=== PATIENT | male | born 1965 | race Caucasian/White ===

== ENCOUNTER → 2023-12-10 09:48 | Outpatient (REF) | payer OTHER, SELFPAY ==
[2023-12-10 10:45] LABS: % Basophils 0.8 % (0-2); % Eosinophils 2.8 % (0-6); % Immature Granulocytes 0.2 % (0-0.5); % Lymphocytes 28.1 % (20.5-51.1); % Monocytes 10.6 % (1.7-9.3); % Neutrophils 57.5 % (42.2-75.2); Absolute Eosinophils 0.1 10^3/uL (0-0.7); Absolute Lymphocytes 1.4 10^3/uL (1.2-3.4); Absolute Monocytes 0.5 10^3/uL (0.1-0.6); Absolute Neutrophils 2.9 10^3/uL (1.4-6.5); Hematocrit 41.8 % (39.0-52.0); Hemoglobin 14.2 g/dL (13.0-18.0); Mean Corpuscular Hgb 30.5 pg (27.0-31.0); Mean Corpuscular Volume 89.7 fL (80.0-94.0); Mean Platelet Volume 10.3 fL (7.4-10.4); Nucleated Red Blood Cells % 0 % (-); Platelet Count 216 10^3/uL (130-400); Red Blood Cell Count 4.66 10^6/uL (4.70-6.10); Red Cell Dist. Width 12.5 % (11.5-14.5); White Blood Cell Count 5.1 10^3/uL (4.8-10.8)
[2023-12-10 13:21] LABS: Blood Urea Nitrogen 26 mg/dl (9-20); Calcium 9.3 mg/dl (8.4-10.2); Carbon Dioxide 24 mmol/L (22-30); Chloride 110 mmol/L (98-107); Glucose 88 mg/dl (70-99); Potassium 4.6 mmol/L (3.5-5.1); Sodium 139 mmol/L (135-145); eGFR > 60.00
[2023-12-12 01:13] LABS: PSA, Ultrasensitive <0.01 ng/mL (0.00-4.00)
== END ==
LOC: REG 09:48
PROVIDERS: ATTENDING PHYSICIAN Orthopaedic Surgery; FAMILY PHYSICIAN Internal Medicine; REFERRING PHYSICIAN Specialist
DX: C61 Malignant neoplasm of prostate (principal); Z01.818 Encounter for other preprocedural examination
CPT/HCPCS: 36415; 80048; 84153; 85025; 93005

== ENCOUNTER 2025-07-09 16:36 | Inpatient (IN) | payer OTHER, SELFPAY ==
[2025-07-09] VITALS (13 sets, daily range): BP systolic 80–138; BP diastolic 61–90; BMI 38.4
--- NOTE | 2025-07-09 13:50 | ED.GENMED ---
History of Present Illness
General
Chief Complaint: Heart Rate Problem
Time Seen by Provider: 07/09/25 13:37
Nursing documentation reviewed up to this point in time: agreed with
History of Present Illness
History of Present Illness:
60-year-old male presents to the ER for evaluation of shortness of breath and feeling of palpitations this morning. Patient felt generally unwell and checked his pulse, noting that his heart rate was in the high 90s. He reports a feeling of
shortness of breath with exertion. He denies any chest pain. He denies any recent change in his medications and has been taking his lisinopril as prescribed. He denies any change in urine output. No nausea vomiting or diarrhea. He has been
traveling recently, including a drive to [facility] and a flight home. No prior personal history of venous thromboembolic disease. No prior personal history of ACS. He denies any recent significant cough or cold symptoms. No fevers. He felt
winded when he tried to go to a work meeting this morning prompting self-referral to the ER for evaluation.
Patient reports that he does have a history of intermittently elevated heart rate of unclear etiology. He states that he has seen a surgical scrub tech but not recently.
Past History
Past History
ED Past Medical History: Other (Obstructive sleep apnea)
ED Past Surgical History: Orthopedic
Social History
Tobacco: Non-smoker
Personal:
Living: with family
Employment: Employed
Family History
Family History: Other (Noncontributory)
Review of Systems
Review of Systems
Allergies reviewed?: Yes
Phy Exam
Physical Exam
Physical Exam:
Patient is awake, alert, appears in no acute distress, head is NCAT, PERRL, EOMI mucous membranes tacky, conjunctiva pink, heart elevated regular rate and rhythm without murmurs or ectopy, lungs are clear to auscultation without wheezes rales or
rhonchi, no JVD, abdomen is soft and nontender on palpation, extremities without edema, GCS is 15
Course
Orders/Labs/Results
Orders:
Orders
07/09/25 11:56
EKG [Electrocardiogram (*1)] Urgent
Reason for Study: Tachycardia
07/09/25 11:57
EKG- Treatment ONCE
07/09/25 13:48
CT Chest PE Study Urgent
Comment:
Reason For Exam: palpitations, hypoxia
O2 Therapy [RESP] Stat
Nasal Cannula Liter Flow: 2 LPM
Titrate/Wean O2 to maintain O2 sat greater than (%): 94
07/09/25 13:49
Cardiac Monitoring- Treatment ONCE
07/09/25 13:56
Complete Blood Count/With Diff Urgent
Comprehensive Metabolic Panel Urgent
PTT Urgent
Prothrombin Time Urgent
Troponin I Q3H
07/09/25 14:40
Electrocardiogram (*1) Urgent
Reason for Study: Palpitations
EKG- Treatment ONCE
07/09/25 15:19
Heparin 9,400 units IV NOW STA
Nursing to Place Non Medication Order As Directed
Physician Order: PTT 6 hours after initial start of Heparin infusion
07/09/25 15:30
Heparin 91655 Units/250 ml 25,000 units in 250 ml IV PER PROTOCOL
Weight to be used for heparin protocol in kilograms (kg):: 117.9
Protocol:: DVT/PE
PTT Goal Range to be used:: PTT 73 to 111 seconds
Order type:: Initial
INITIAL Infusion Dose (UNITS/KG/hr) & then follow protocol:: 18 units/kg/hr
Infusion Dose in UNITS/hr & then follow protocol (UNITS/hr):: 2,000
INFUSION RATE in mL/hr & then follow protocol (mL/hr):: 20
For DVT/PE algorithm, re-bolus for low PTT?: Yes
PTT less than or equal to 64 seconds:: Re-bolus 80 units/kg (max 10,000units). Increase by 500 units/hr
(+ 5mL/hr)
PTT 64.1 to 72.9 seconds:: Re-bolus 40 units/kg (max 5,000 units). Increase by 200 units/hr
(+ 2mL/hr)
PTT 73 to 111 seconds:: Target Range. No change in rate.
PTT 111.1 to 130.9 seconds:: Decrease rate by 200 units/hr (- 2 mL/hr)
PTT 131 to 199.9 seconds:: HOLD for 1 hr. Then decrease by 400 units/hr (- 4mL/hr)
PTT greater than or equal to 200 seconds:: HOLD for 2 hrs & Notify Provider. Then decrease by 500 units/hr
(- 5mL/hr)
Lab follow-up:: Each change, PTT q6h until 2 consecutive are therapeutic. Then
PTT daily.
07/09/25 16:[address] See Dose Instructions IV DIRECTED
07/09/25 17:00
Troponin I Q3H
07/09/25 21:21
PTT Urgent
Abnormal Lab Results
07/09/25
13:56
WBC 10.9 H 10^3/uL
(4.8-10.8)
Absolute Neuts (auto) 8.7 H 10^3/uL
(1.4-6.5)
Absolute Monos (auto) 0.8 H 10^3/uL
(0.1-0.6)
Neutrophils % 79.8 H %
(42.2-75.2)
Lymphocytes % 11.8 L %
(20.5-51.1)
Glucose 106 H mg/dl
(70-99)
Troponin I 0.279 H* ng/ml
07/09/25 13:56
07/09/25 13:56
CBC reassuring. Troponin elevated at 0.279
Vital Signs
Initial and Last Documented VS:
Initial Vital Signs
Temp Pulse Resp BP Pulse Ox
97.8 F 121 16 136/90 90
07/09/25 11:57 07/09/25 11:57 07/09/25 11:57 07/09/25 11:57 07/09/25 11:57
Last Documented Vital Signs
Temp Pulse Resp BP Pulse Ox
99.0 F 102 25 136/87 94
07/09/25 14:01 07/09/25 15:30 07/09/25 15:30 07/09/25 15:26 07/09/25 15:30
MDM/Problems Addressed
Differential Diagnosis Includes:
Differential diagnosis to consider but not limited to dehydration, electrolyte dyscrasia,arrythmia, ACS, pulmonary embolism, pneumonia along with other etiologies consider
Chronic conditions affecting care:
Hypertension, age greater than 50
*Radiology
Radiology exam reviewed: preliminary read by ED provider (I independently viewed and interpreted CT of the chest showing bilateral pulmonary emboli. Awaiting radiology interpretation of same)
*Pulse Oximetry
SaO2: 90
Oxygen Mode of Delivery: Room air
Patient hypoxic: yes
*EKG
Interpreted by ED Provider?: Yes (I independently viewed and interpreted twelve-lead EKG showing sinus tachycardia, rate 111, normal axis, otherwise normal intervals, nonspecific ST changes without ST elevation, this is an abnormal tracing with
increased rate compared to prior from 12/10/2023)
*Buckshot Swage Operator Interpretation
Rate: tachycardiac (I independently viewed and interpreted rhythm strip showing sinus tachycardia, no ectopy)
*Critical Care Note
Total Time (30-74mins, 75-104mins- exclusive of procedures): See note below
comment:
Critical care statement: A total of 30 minutes of critical care time was provided for this patient. This includes management of unstable vital signs, evaluation of the patient at bedside, reviewing the patient's pertinent medical records, discussion
with consultants, review of old EKGs and review of pertinent medical records. This time with separate from time utilized to perform the aforementioned documented procedures
Update Note
Update Note:
Given patient is hypoxic now requiring 2 L nasal cannula oxygen along with recent travel and elevated heart rate, will obtain CT to rule out pulmonary embolism
1448: After troponin value returned as elevated, EKG was repeated, revealing consistent tachycardia although improved with IV fluid administration, rate now 101. No ST elevation. Awaiting CT scan.
I independently viewed and interpreted CT scan showing bilateral pulmonary emboli. IV heparin bolus and drip are ordered. Patient and present at bedside are updated on need for admission for further anticoagulation and evaluation. They agree
with plan at current. I reviewed CT reading with radiologist who is in agreement with presence of bilateral pulmonary emboli. I reviewed full patient presentation with hospitalist who accepts patient for admission for further care.
ED Attending Note
-
Portions of this chart may have been created with voice recognition software.� Occasional wrong word or��sound alike� substitutions may have occurred due to the inherent limitations of voice recognition software.
Discharge Plan
Departure
Patient Disposition: Admit
Date of Disposition: 07/09/25
Time of Disposition: 15:51
Presentation/result/management discussed w/ accepting MD/DO: Hospitalist
Discharge Problem:
Pulmonary emboli, Elevated troponin I level, Hypoxia
Prescriptions:
No Action
acetaminophen [Tylenol] 325 mg Tablet
650 mg PO Q6HPRN PRN (Reason: headaches)
ascorbic acid (vitamin C) [Vitamin C] 500 mg Tablet
500 mg PO DAILY
cholecalciferol (vitamin D3) [Vitamin D3] 25 mcg (1,000 unit) Tablet
25 mcg PO DAILY
lisinopril-hydrochlorothiazide 10-12.5 mg Tablet
1 tab PO DAILY
Referrals:
Félix Banda DO [Family Provider, Internal Medicine]
Interventions
Interventions:
*Risk Screen - Suicide Last Done: 07/09/25 14:01
*General Assessment Last Done: 07/09/25 14:01
*Neglect/Abuse Screening Last Done: 07/09/25 14:01
*ED- Fall Risk Assessment Last Done: 07/09/25 14:01
*ED COVID-19 Vaccine History Last Done: 07/09/25 14:01
ED- Cardiac Assessment Last Done: 07/09/25 14:01
ED- Pulmonary Assessment Last Done: 07/09/25 14:01
Discharge Date and Time
Print Language: GERMAN
[2025-07-09 14:09] LABS: Hematocrit 41.6 % (39.0-52.0); Hemoglobin 14.2 g/dL (13.0-18.0); Mean Corp Hgb Conc. 34.1 g/dL (33.0-37.0); Mean Corpuscular Volume 86.8 fL (80.0-94.0); Nucleated Red Blood Cells % 0 % (-); Platelet Count 203 10^3/uL (130-400); Red Cell Dist. Width 12.3 % (11.5-14.5)
[2025-07-09 14:13] LABS: INR 1.06; PT 14.4 Sec (11.4-14.6)
[2025-07-09 14:14] LABS: APTT 32.2 Sec (23.4-35.0)
[2025-07-09 14:36] LABS: Troponin I 0.279 ng/ml
[2025-07-09 14:38] LABS: ALT (SGPT) 23 U/L (0-50); AST (SGOT) 20 U/L (17-59); Albumin 4.6 g/dl (3.5-5.0); Alkaline Phosphatase 74 U/L (38-126); Blood Urea Nitrogen 19 mg/dl (9-20); Calcium 9.5 mg/dl (8.4-10.2); Carbon Dioxide 28 mmol/L (22-30); Chloride 101 mmol/L (98-107); Estimated Creatinine Clearance 113 ml/min; Glucose 106 mg/dl (70-99); Potassium 4.6 mmol/L (3.5-5.1); Sodium 136 mmol/L (135-145); Total Protein 8.0 g/dl (6.3-8.2); eGFR > 60.00
[2025-07-09] MEDS: HEPARIN 9400 UNITS IV (15:47)
[2025-07-09] MEDS: HEPARIN 25000 UNITS/250 ML IV (15:50)
--- NOTE | 2025-07-09 15:57 | HPS.HSE ---
Family Physician
-
Family Physician: Félix Banda
Chief Complaint
-
Shortness of breath and chest pain
History of Present Illness
60-year-old male with history of hypertension and recent multiple travel flying and driving including 10-hour driving to [place] then, back 2 weeks ago he flew overnight to [place] and came back next day, presented to the hospital complaining of
shortness of breath, chest pain and palpitation and tachycardia earlier this morning while he was getting out from his office to drive to [place] walking few steps to the car the above-mentioned symptoms started and he looked at his Apple Watch
and he said his heart rate was 140, when he decided to not go to [place] he walked back to his office his symptoms started again therefore decided to come back to the hospital. Denied any fever or chill or any bleeding event or any chest pain or
shortness of breath prior to today but overall was not feeling well and having low energy last few days, no weakness or numbness in extremity, no dizziness or syncope.
Workup in ER concerning for bilateral pulmonary embolism and CT scan showed mild right-sided strain while he is awake, alert and oriented x 3 hold appropriate conversation and maintaining normal saturation and blood pressure and heart rate.
He is not in distress.
Denied prior history of DVT or PE or sudden in the family or family history of thromboembolism
Medical History
Past Medical History
Past Medical History: Reports Other
Additional Past Medical History:
Past medical history and archive reviewed:
Hypertension
Prostate cancer status post prostatectomy
Osteoarthritis status post left knee replacement
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
Family history: Reviewed and noncontributory
Past Surgical History: Reports Other
Social History
Unable to obtain full social history at this time due to: Other
Family History
Family History: Other
Allergies / Home Medications
Allergies reflects when Allergies were last updated in [facility].
Home Medications with original date entered in [facility]
Allergy/Medication List:
Allergies
Allergy/AdvReac Type Severity Reaction Status Date / Time
No Known Allergies Allergy Verified 01/13/20 23:45
Home Medications
acetaminophen 325 mg tablet (Tylenol) 650 mg PO Q6HPRN PRN headaches 07/09/25
ascorbic acid (vitamin C) 500 mg tablet (Vitamin C) 500 mg PO DAILY 07/09/25
cholecalciferol (vitamin D3) 25 mcg (1,000 unit) tablet (Vitamin D3) 25 mcg PO DAILY 07/09/25
lisinopril 10 mg-hydrochlorothiazide 12.5 mg tablet 1 tab PO DAILY 07/09/25
If medication reconciliation has not been performed, why?: Other
Review of Systems
-
A 12 point ROS was completed and negative except as noted: Yes
Physical Exam
Vital Signs
Vital Signs
Temp Pulse Resp BP Pulse Ox
99.0 F 103 22 136/87 94
07/09/25 14:01 07/09/25 15:45 07/09/25 15:45 07/09/25 15:26 07/09/25 15:45
Physical exam:
General: Awake, alert and oriented x3, not in distress and holds appropriate conversation. Overweight, not in distress
HEENT: No active discharge, ecchymosis or bruising, moist lips, tongue and mucous membrane.
Eyes: No discharge or red conjunctiva, no nystagmus, pupils are reactive and equal
Neck:Supple, no JVD no bruit no goiter.
Respiratory: Normal AP contour and diameter, normal chest wall movement, normal respiratory effort, no respiratory distress,
Lungs: Good air entry bilaterally, no wheezing or rhonchi, no rales or crackles
Heart: S1, S2 regular, mildly tachycardic, no added sound.
Gastrointestinal: Positive bowel sounds, soft, nontender, no guarding or rigidity or organomegaly
Musculoskeletal: , no chest wall abnormality or tenderness. All joints and extremities have good range of motion, no muscle tenderness or any joint swelling or tenderness.
Extremities: No pitting edema, good peripheral pulses, good range of motion
Skin: Warm and dry, no ulceration, normal color.
Neurological: Awake, alert and oriented x3, normal mentation, move extremities freely and good muscle tone speech clear and comprehensive, good muscle tone,
Psychiatric: Normal mood, normal thought and judgment, normal affect,
Physical Exam
General: Other
Laboratory Results
-
07/09/25 13:56
07/09/25 13:56
Laboratory Results
PT 14.4 Sec (11.4-14.6) 07/09/25 13:56
INR 1.06 07/09/25 13:56
APTT 32.2 Sec (23.4-35.0) 07/09/25 13:56
Total Bilirubin 0.6 mg/dl (0.2-1.3) 07/09/25 13:56
AST 20 U/L (17-59) 07/09/25 13:56
ALT 23 U/L (0-50) 07/09/25 13:56
Alkaline Phosphatase 74 U/L (38-126) 07/09/25 13:56
Troponin I 0.279 ng/ml H* 07/09/25 13:56
CTA Chest :
Positive for acute pulmonary thromboembolism, moderate volume involving the bilateral lobar, segmental, and subsegmental branches.
Suspected mild right heart strain.
Groundglass opacity in the lingula suggesting a developing pulmonary infarct, less likely aspiration or pneumonia.
EKG: Shows sinus tachycardia rate around 101, QTc is 480, normal axis otherwise nonspecific Abnormality, S wave seen in lead I
Data Reviewed
-
CT Scan: Image Personally Visualized and interpreted and Discussed with Patient
Lab Data: Labs Reviewed by me and Discussed with Family
Impression/Plan
-
IMPRESSION:
60-year-old male presented to the hospital after having recurrent chest pain shortness of breath and tachycardia workup currently concerning for bilateral pulmonary embolism likely triggered by recent travel.
Acute bilateral pulm embolism:
- Likely triggered by recent multiple travel, other causes without prior history of prostate cancers could be a possibility but unlikely
- Started on heparin drip while continuing can be changed to NOAC
- Monitor for any kind of bleeding or changes stool color discussed with the patient
- Monitor vital sign closely
- Admit in IMU for now as CAT scan showed mild strain and he is mildly hypoxic on room air.
- Low threshold to upgrade to higher level of care
Echo
Pulmonary consult
Acute hypoxic failure:
- Likely secondary to pulmonary embolism, oxygenation was 90% on the room air
- Now maintaining mid 90s.
Elevated troponin:
- Likely secondary to pulm embolism
Follow the trend
Hypertension:
- On lisinopril continue and monitor blood pressure closely
All discussed with the patient and the in detail and expressed understanding of the question answered
CODE STATUS full code
DVT prophylaxis heparin drip for now
--- NOTE | 2025-07-09 16:28 | CON.PUL ---
Consultation
Consultation Request
Date/Time Consultation Requested: 07/09/2025
Date/Time Consultation Performed: 07/10/2025
Medical History
-
Chief Complaint: Shortness of breath
History of Present Illness:
Patient is a very pleasant 60-year-old gentleman who presented to the hospital with chest pain, shortness of breath and dizziness. Patient reports that this morning when he woke up and he walked a little bit he felt mildly short of breath. He got
ready and went to work and while walking from parking [employer] to his office he stopped 3 times to catch his breath. Patient reports that it heart rate also shot up 240 and he felt mildly dizzy. He decided to seek medical attention and was evaluated in
the emergency room and noted to have bilateral pulmonary embolism with mild RV strain. Patient denies any prior history of DVT or pulmonary embolism.
Patient reports that within the last 2 months he has had extensive road and air travel including travel to [facility] with a 4-hour flight, subsequently drive to [place] which was [address] about 6 weeks ago and then an additional flight to
[facility]. Patient is not on any hormonal therapy. Prior history of prostate cancer 2-1/2 years ago, s/p prostatectomy and currently in remission. Patient also has had a knee surgery in December 2023. No recent hospitalization. No family
history of pulmonary embolism. In view of bilateral pulmonary embolism, pulmonary consultation was requested for further evaluation.
Past Medical History
Past Medical History: Reports Other
Additional Past Medical History:
Past medical history and archive reviewed:
Hypertension
Prostate cancer status post prostatectomy
Osteoarthritis status post left knee replacement
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
Family history: Reviewed and noncontributory
Past Surgical History: Reports Other
Social History
Unable to obtain full social history at this time due to: Other
Family History
Family History: Other
Allergies / Home Medications
Allergies
Allergy/AdvReac Type Severity Reaction Status Date / Time
No Known Allergies Allergy Verified 01/13/20 23:45
Home Medications
�Medication �Instructions �Recorded �Confirmed �Last Taken �Type
acetaminophen 325 mg tablet 650 mg PO Q6HPRN PRN headaches 07/09/25 07/09/25 07/08/25 History
(Tylenol)
ascorbic acid (vitamin C) 500 mg 500 mg PO DAILY 07/09/25 07/09/25 07/09/25 History
tablet (Vitamin C)
cholecalciferol (vitamin D3) 25 25 mcg PO DAILY 07/09/25 07/09/25 07/09/25 History
mcg (1,000 unit) tablet (Vitamin
D3)
lisinopril 10 1 tab PO DAILY 07/09/25 07/09/25 07/09/25 History
mg-hydrochlorothiazide 12.5 mg
tablet
Review of Systems
-
Hematologic/Lymphatic: Other (All 14 systems reviewed and negative except as stated above in the history of present illness.)
Vitals / Labs / Diagnostic Testing
Vital Signs
Temp Pulse Resp BP Pulse Ox
99.0 F 103 22 136/87 94
07/09/25 14:01 07/09/25 15:45 07/09/25 15:45 07/09/25 15:26 07/09/25 15:45
Lab Data
07/09/25 13:56
07/09/25 13:56
Laboratory Results
07/09/25
13:56
PT 14.4
INR 1.06
APTT 32.2
Diagnostic Testing:
Physical Exam
-
HEENT: Normocephalic
Cardiovascular: S1/S2
Respiratory: Clear
GI: Soft and Non Distended
Neurology: Awake and Alert
Skin: Warm
General: Comfortable
Assessment
-
#1. Acute bilateral pulmonary embolism, mild RV strain
- Imaging suggestive of mild RV strain, also noted to have elevated troponin, intermediate risk PE
- Patient is hemodynamically stable, not requiring any pressors, requiring 1 ltr supplemental O2. Reported prior episode of dizziness.
- Patient has already been started on heparin drip in the emergency room, can continue for now. Discussed case with interventional radiology service, current recommendation was to continue anticoagulation and reconsider catheter directed therapy if
patient changes hemodynamically
- Check echocardiogram, lower extremity Dopplers. Await formal echo to assess pulmonary artery and RV pressures. If patient develops any hemodynamically instability, rising oxygen requirement or significant RV dysfunction or pulmonary hypertension
on echo, can reconsider catheter directed therapies.
- Suspect etiology is recent long road and air travel. Reported prior h/o Prostate cancer s/p surgery in 2.5 years ago.
- Will need minimum of 3 months of anticoagulation. Final recommendations after additional work up completed to rule out any malignancy.
#2. Ground glass pulmonary opacity, suspect developing pulmonary infarct
- Will need outpatient follow-up CT scan in 3 months
#3. History of prostate cancer.
- S/p prostatectomy, in remission per patient
- Outpatient follow-up with urology service
- In view of now DVT and PE, will need to ensure remission prior to discontinuation of anticoagulation
Other medical diagnoses:
- Hypertension
- Osteoarthritis
Total time spent on this consultation/encounter __65__ minutes which includes review of history, physical exam, medications, laboratory data, personal review of imaging, extensive review of outpatient records, discussion with care team and
respiratory therapy.
Data:
CT Chest 06/2025: Positive for acute pulmonary thromboembolism, moderate volume involving the bilateral lobar, segmental, and subsegmental branches.
Suspected mild right heart strain.
Groundglass opacity in the lingula suggesting a developing pulmonary infarct, less likely aspiration or pneumonia.
Stress ECHO 04/2019: Normal stress echocardiogram without evidence for inducible ischemia at level
of exercise achieved
Stress EKG negative for ischemia on a Galileo protocol exercising 10 minutes and
achieving 92% max predicted heart rate
Normal blood pressure response to exercise
Isolated PVCs and one 4 beat run of paroxysmal atrial tachycardia noted. No
atrial fibrillation during exercise.
Good exercise capacity, achieved 11 METs
--- NOTE | 2025-07-09 16:37 | CM ---
CM reviewed chart and met with pt bedside in ED. Lives with his , 2 story home, half BA first floor, BR/full BA second floor.
Independent in ADLs, personal care and ambulation at baseline. No DME.
Confirms prescription coverage.
Hx VN after knee surgery, no hx SNF
PCP: Félix Banda
Pharmacy: [facility]
CM will continue to follow for any discharge planning needs.
[2025-07-09] MEDS: NSS 1000 IV (17:39)
--- NOTE | 2025-07-09 17:40 | PTCARENOTE ---
received from ER on 1999 of Heparin gtt. on 2L of O2 via NC. slight dyspneic on exertion, mo c/o pain. patient was assessed and oriented to his room. currently eating his dinner. no s/s of distress, cont with current orders
[2025-07-09 18:32] LABS: Troponin I 0.374 ng/ml
[2025-07-09 22:39] LABS: Troponin I 0.324 ng/ml
[2025-07-09 22:54] LABS: APTT 82.9 Sec (23.4-35.0)
--- NOTE | 2025-07-09 23:00 | RR ---
Addendum entered by Israel Dick RN 07/10/25 00:12:
to be updated by NIGHAT.
Original Note:
A Rapid Response was called on this patient, please see Rapid Response form.
Patient rang call brown stating he took off his CPAP because he was feeling lightheaded while sitting in the chair. Pt visibly diaphoretic, pale, with slow speech. Tele monitor alarming HR 40s and Sp02 84% on RA. BP 80/69. Rapid response called for
bradycardia, hypotension, and hypoxia. 2L NC placed, then transitioned to NRB 15L. Sp02 99-100%. Pt placed in flat laying position in chair. After a few moments recheck BP 95/67, pt stated he was starting to feel better and able to transfer self
from chair to bed. EKG done. HR increased to 60s after few minutes.
Decision was made to transfer to ICU. Report given to MEENU Thacker. Pt transferred to room 3366 with belongings.
[2025-07-09 23:16] LABS: Glucose - Point of Care 115 mg/dl (70-99)
--- NOTE | 2025-07-09 23:24 | W.PN.UPDATE ---
Addendum entered and electronically signed by NIGHAT Mccain 07/10/25 00:17:
Called and spoke to patient's , Lilia, to update on events and transfer to higher level of care for closer monitoring.
Original Note:
Update Note
Progress Note Update
Rapid response called. Patient hypotensive BP 80's/40's, Bradycardic HR 40's, hypoxic pulsox mid 80's, started on non-rebreather, diaphoretic, pale, almost syncopal episode. Patient was OOB in chair. EKG done, preliminary read NSR, QTcB 480. Concern
for patient needing additional BP and/or respiratory support, will transfer to ICU. Spoke with ICU EDGER FEEDER to review case.
[2025-07-10] VITALS (38 sets, daily range): BP systolic 89–142; BP diastolic 56–86
--- NOTE | 2025-07-10 01:56 | PTCARENOTE ---
Pt received post BLOW TORCH OPERATOR. Pt conversing appropriately, AAOx4. O2 weaned down to 6L NC POX 95-99%. Breath sounds diminished b/l. Pt no longer diaphoretic, normal color. Denies any lightheadedness/dizziness/CP/SOB. Heparin and IVF infusing as ordered.
Updated pt on plan of care, pt states understanding. Call brown within reach.
[2025-07-10] MEDS: NSS 1000 IV ×2 (04:06→12:59)
[2025-07-10] MEDS: HEPARIN 25000 UNITS/250 ML IV ×3 (04:06→22:32)
[2025-07-10 04:52] LABS: Hematocrit 40.0 % (39.0-52.0); Hemoglobin 13.2 g/dL (13.0-18.0); Mean Corp Hgb Conc. 33.0 g/dL (33.0-37.0); Mean Corpuscular Volume 88.7 fL (80.0-94.0); Platelet Count 179 10^3/uL (130-400); Red Cell Dist. Width 12.5 % (11.5-14.5)
[2025-07-10 05:03] LABS: APTT 58.6 Sec (23.4-35.0)
--- NOTE | 2025-07-10 05:36 | PTCARENOTE ---
VSS. AM PTT resulted, spoke with BOAT HOIST OPERATOR HELPER - increase gtt per order, no bolus. Voiding well. No further change in assessment.
[2025-07-10 06:20] LABS: Blood Urea Nitrogen 18 mg/dl (9-20); Calcium 8.5 mg/dl (8.4-10.2); Carbon Dioxide 27 mmol/L (22-30); Chloride 106 mmol/L (98-107); Estimated Creatinine Clearance 113 ml/min; Glucose 96 mg/dl (70-99); Potassium 4.5 mmol/L (3.5-5.1); Sodium 138 mmol/L (135-145); eGFR > 60.00
[2025-07-10 06:25] LABS: INR 1.11; PT 14.8 Sec (11.4-14.6)
--- NOTE | 2025-07-10 08:00 | PTCARENOTE ---
received patient from night shift supervisor. patient is aaox4, sinus rhythm on monitor, 100% on 6L nasal cannula. Denies pain or shortness of breath. Patient is NPO, using urinal at bedside. skin intact. will review orders. awaiting plan of care. echo
outstanding.
--- NOTE | 2025-07-10 10:01 | CON.INTV ---
Consultation
Consultation Request
Date/Time Consultation Requested: 23:19 07/09/25
Date/Time Consultation Performed: 8:00 07/10/25
Medical History
-
History of Present Illness:
60yoM nonsmoker H HTN, prostate cx s/p prostatectomy 2022, ANDI with recent travel presenting with acute SOB and chest tightness found to have bilateral PE in ED.
Pt reports feeling fine until yesterday he woke up feeling a bit SOB, once arriving to work he had severe dyspnea upon walking short distances with lightheadedness and his fitness tracker warned of tachycardia. He drove home where his convinced
him to present to the ED. The ED found a bilateral subsegmental clot in which he was started on heparin and transferred to the IMU. Overnight in the IMU, he put on his home CPAP machine to sleep and remembers waking up shortly after feeling severely
lightheaded at around 11:30pm. Rapid called: Bp dropped to 80/40 bradycardic to 40s oxygen sat 80%, transferred to ICU.
Pt describes traveling far distances over the summer with the last big trip 2 weeks ago. He reports about 2 months of calf cramping on the sides. He had a knee replacement on the L side a year ago and developed achilles tendonitis as his knee
heeled. He has since been seeing a chiropractor receiving calf stim in which he attributed the cramping to. Denies hx clotting or blood disorder. No FH [place] or CVA. Pt diagnosed with localized prostate cancer 2022 s/p prostatectomy. Pt reports being
minimally active limited by his knee recovery and ankle pain but he still likes to ride his bike.
Today, pt reports resolved SOB and chest tightness. Denies pain, leg swelling, or dyspnea.
Past Medical History
Past Medical History: Cancer (prostate s/p prostatectomy 2022), HTN and Other (ANDI)
Past Surgical History: Orthopedic (knee replacement) and Urological (prostatectomy)
Social History
Tobacco: Non-smoker
Allergies / Home Medications
Allergies
Allergy/AdvReac Type Severity Reaction Status Date / Time
No Known Allergies Allergy Verified 01/13/20 23:45
Home Medications
�Medication �Instructions �Recorded �Confirmed �Last Taken �Type
acetaminophen 325 mg tablet 650 mg PO Q6HPRN PRN headaches 07/09/25 07/09/25 07/08/25 History
(Tylenol)
ascorbic acid (vitamin C) 500 mg 500 mg PO DAILY Supplement 07/09/25 07/09/25 07/09/25 History
tablet (Vitamin C)
cholecalciferol (vitamin D3) 25 25 mcg PO DAILY Supplement 07/09/25 07/09/25 07/09/25 History
mcg (1,000 unit) tablet (Vitamin
D3)
lisinopril 10 1 tab PO DAILY Blood Pressure 07/09/25 07/09/25 07/09/25 History
mg-hydrochlorothiazide 12.5 mg
tablet
Review of Systems
-
History Source: Patient
All other systems: Negative unless noted
Vitals / Labs / Diagnostic Testing
Vital Signs
Temp Pulse Resp BP Pulse Ox
97.9 F 64 18 119/73 97
07/10/25 05:41 07/10/25 05:30 07/10/25 05:30 07/10/25 05:30 07/10/25 05:30
Lab Data
07/10/25 04:18
07/10/25 04:18
Laboratory Results
07/09/25 07/09/25 07/09/25
13:56 22:05 22:36
PT 14.4
INR 1.06
APTT 32.2 Cancelled 82.9 H
07/10/25 07/10/25
04:18 06:00
PT 14.8 H Cancelled
INR 1.11 Cancelled
APTT 58.6 H Cancelled
Diagnostic Testing:
Physical Exam
-
HEENT: Normocephalic, Anicteric and Moist Mucous Membranes
Cardiovascular: S1/S2, Regular Rhythm, Peripheral Edema (none) and Calf Tenderness (none)
Respiratory: Clear and Non-Labored Respirations
GI: Soft
Neurology: AO x 3 and No Motor Deficits
Skin: Warm and Dry
General: Comfortable
Assessment
-
60yoM nonsmoker PMH ANDI, HTN, prostate cx s/p prostatectomy 2022, knee replacement 1 yr ago presenting with SOB and tachycardia found to have bilateral subsegmental PE in ICU for acute decompensation in vitals overnight.
Pt is feeling better today. AFVSS. EKG demonstrated QTc 484. BNP 932. Troponin 0.324 downtrending. Evidence of possible RH strain recovering. Pending echo and LE US today. Pt hx of travel over the last few months with possible calf cramping.
Unprovoked with no risk factors of PMH, clotting dx. Episode of bradycardia and hypotension resolved.
Plan:
Neuro:
Alert and oriented
Pulm:
Continue heparin drip.
Resolving SOB and chest tightness. saturating well on room air
Monitor for changes in respiratory status.
Consider catheter directed thrombolysis
Cardiovascular:
Pending echo today.
Trend troponins and BNP.
LE US.
Hold home HTN medications
GI:
Normal diet
:
Urinating appropriately.
Hx prostatectomy.
ID:
Hold abx. No current indication
Endo:
No PMH DM or thyroid dx.
DVT prophylaxis: therapeutic heparin
Diet: normal
Disposition: downgrade from ICU
--- NOTE | 2025-07-10 10:36 | PTCARENOTE ---
Patient now on 2L. oxygen saturation 98%.
--- NOTE | 2025-07-10 10:49 | W.PN.HOSP.TC ---
Today's Communication/Plan
-
Heparin drip. Echocardiogram. Doppler lower extremities
Assessment / Plan
Assessment / Plan
Physical exam:
General: Acutely ill
HEENT: Normocephalic, Atraumatic and Moist Mucous Membranes
Respiratory: Clear to Auscultation; Negative Wheezes, Rales or Rhonchi
Cardiac: Regular Rhythm and S1/S2
GI: Soft, Nontender and Nondistended
Musculoskeletal: No Clubbing, No Cyanosis and No Edema
Neuro: Awake, Alert and Oriented, no neurological deficit
Psych: Calm
A/P:
Acute pulmonary embolism, suspected submassive PE:
Concerns for right ventricular strain and episode of hypotension overnight--> currently hemodynamically stable.
Likely provoked PE
Seen CT scan of the chest
Continue IV heparin drip
I see no indication for catheter-based thrombolytics at the moment until we get echocardiogram back and we can reevaluate since he is certainly high risk. Discussed with patient and at bedside.
Discussed with mergers and acquisitions consultant from last evening who placed order for catheter-based thrombolytic.
Discussed with mergers and acquisitions consultant and box builder of today and he agrees to hold on catheter-based thrombolytics for now until reevaluation.
Plan for echocardiogram
Plan for Doppler both lower extremities
Acute hypoxic respiratory failure:
Related to PE
Continue oxygen supplementation-currently on 5 L of oxygen with pulse ox 100%
Elevated troponin:
Elevated troponin due to non-ischemic myocardial injury due to PE
Echocardiogram pending
ANDI:
CPAP as needed
Hypertension:
Hold lisinopril and HCTZ due to hypotension
History of prostate cancer:
History of prostatectomy back in 2022
DVT prophylaxis:
Heparin drip
CODE STATUS:
Full code
Total time spent on today's encounter was 65 minutes which included time spent in counseling the patient/family regarding diagnosis and treatment plan as listed above, goals of care, and symptom management. Case was discussed with nursing staff,
specialists, and care coordinators/case management. All labs and imaging personally reviewed by me. Remainder the time spent in detailed review of previous records, lab data, imaging, and other medical provider documentation.
Anticipated Discharge: > 48 hours
Subjective/Interval History
-
Date of Service: July 10, 2025
Patient denies any chest pain or shortness of breath currently. On 5 L of oxygen. Heart rate appears stable while he is in bed.
Objective Data
-
Labs:
Laboratory Results
07/09/25 07/10/25 07/10/25
22:36 04:18 06:00
WBC 9.3
Hgb 13.2
Hct 40.0
Plt Count 179
PT 14.8 H Cancelled
INR 1.11 Cancelled
APTT 82.9 H 58.6 H Cancelled
Sodium 138
Potassium 4.5
Chloride 106
Carbon Dioxide 27
BUN 18
Creatinine 0.9
Glucose 96
Calcium 8.5
07/10/25
11:30
WBC
Hgb
Hct
Plt Count
PT
INR
APTT Pending
Sodium
Potassium
Chloride
Carbon Dioxide
BUN
Creatinine
Glucose
Calcium
Vital Signs:
Vital Signs
Temp Pulse Resp BP Pulse Ox
97.9 F 67 15 122/80 98
07/10/25 05:41 07/10/25 10:30 07/10/25 10:30 07/10/25 10:30 07/10/25 10:30
I&O
07/09/25 07/10/25 07/11/25
06:59 06:59 06:59
Intake Total 845 / 970 500 / 500
Output Total 500 / 500
Balance 345 / 470 500 / 500
[2025-07-10 12:21] LABS: APTT 76.1 Sec (23.4-35.0)
--- NOTE | 2025-07-10 14:49 | PTCARENOTE ---
Patient results of echo and US reviewed by Dr. Hull with patient.
--- NOTE | 2025-07-10 14:51 | CM ---
PE: Hep drip, doppler B/L LE. Discharge POC: Anticipate no needs vs HH RN.
[2025-07-10 18:18] LABS: APTT 100.2 Sec (23.4-35.0)
--- NOTE | 2025-07-10 20:30 | PTCARENOTE ---
Handoff report received from off going RN. Patient received on heparin gtt ay 2500 units/hr. AAOx4. Plan of care for the shift reviewed with the patient. NSR on the monitor. All pulses are palpable. Does not verbalize pain at this time. Patient
received on 2L/o2 nc. Spo2 at 97%. Does not complain of sob. Weaned of o2 and pt's 95% on room air. Diminished breath sounds at the bases. Pt's hesitant to use his CPAP due to the previous night events. States that he does feel more restful with
CPAP use, however. Discussed with the patient that he should utilize his CPAP and that we'll make sure that respiratory assists with setup to provide assurance and safety with setup. Pt's agreeable. +BS. Pt voids via the urinal. PIV. All needs are
met at this time. Call brown and urinal are within reach.
[2025-07-11] VITALS (12 sets, daily range): BP systolic 103–134; BP diastolic 68–84; BMI 37.7
--- NOTE | 2025-07-11 00:07 | PTCARENOTE ---
Patient reassessed and is resting with his eyes closed. Pt's with even and unlabored breathing and chest rise. RR 18. SpO2 at 96% on 2L via home CPAP. remains NSR on the monitor. Heparin gtt ongoing. No further changes from the previous assessment.
[2025-07-11 03:47] LABS: Hematocrit 38.2 % (39.0-52.0); Hemoglobin 13.0 g/dL (13.0-18.0); Mean Corp Hgb Conc. 34.0 g/dL (33.0-37.0); Mean Corpuscular Volume 87.4 fL (80.0-94.0); Platelet Count 172 10^3/uL (130-400); Red Cell Dist. Width 12.5 % (11.5-14.5)
[2025-07-11 04:06] LABS: Blood Urea Nitrogen 22 mg/dl (9-20); Calcium 9.6 mg/dl (8.4-10.2); Carbon Dioxide 25 mmol/L (22-30); Chloride 108 mmol/L (98-107); Estimated Creatinine Clearance > 125 ml/min; Glucose 84 mg/dl (70-99); Magnesium 2.1 mg/dl (1.6-2.3); Potassium 4.5 mmol/L (3.5-5.1); Sodium 138 mmol/L (135-145); eGFR > 60.00
--- NOTE | 2025-07-11 04:19 | PTCARENOTE ---
Patient reassessed. Continues to utilizes CPAP. Arouses to verbal commands. No changes from the previous assessment.
[2025-07-11 06:34] LABS: APTT 28.6 Sec (23.4-35.0)
[2025-07-11] MEDS: HEPARIN 9400 UNITS IV (06:47)
--- NOTE | 2025-07-11 08:03 | PTCARENOTE ---
0700 assumed care. patient in bed. Heparin at 3,000/30 ml via RT AC peripheral line.
AAO x 3 Denies pain, denies chest pain, no SOB. on Bedrest until further orders
--- NOTE | 2025-07-11 08:10 | W.PN.INTV ---
Today's Communication / Plan
Recommendations
Heparin drip with transition to Eliquis tonight
Continue CPAP with sleep and perform nocturnal oximetry tonight on room air to assess if oxygen is needed upon discharge to be bled into his CPAP
Okay to get up out of bed; can walk in hallway if tolerated
Recommend checking ambulatory pulse oximetry prior to discharge
Patient is stable for downgrade out of ICU to telemetry. Pulmonary service will continue to follow along. I will arrange for outpatient pulmonary office follow-up for PFTs + 6MWT.
Assessment
-
60yoM nonsmoker PMH ANDI, HTN, prostate cx s/p prostatectomy 2022, knee replacement 1 yr ago presenting with SOB and tachycardia found to have bilateral subsegmental PE in ICU for acute decompensation in vitals overnight.
Impression:
#Acute submassive bilateral PE with mild RV strain seen radiographically - likely provoked from recent flight although does have history of prostate cancer s/p surgery 2.5 years ago (in remission)
#Acute hypoxic respiratory failure due to above
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
#Left lower extremity DVT involving the peroneal vein
#History of prostate cancer
#Hypertension
Plan:
- Continue with systemic anticoagulation with heparin drip; recommend transition to NOAC tonight, preferably Eliquis
- Recommend lead case manager consult to assess affordability of Eliquis
- Recommend outpatient hematology evaluation for hypercoagulable workup and assistance to decide duration of AC
- Echo shows no evidence of RV strain and normal PASP; no need for catheter directed thrombolysis or embolectomy at this time
- Lower extremity duplex shows distal left lower extremity DVT; he has no complaints of leg pain and his left leg has good color hence no need for mechanical thrombectomy at this time
- Ok for pt to get up OOB given it has been >24 hrs with systemic AC
- Maintain SpO2 >90-94%
- Patient will need an ambulatory pulse oximetry prior to discharge
- Continue with CPAP with sleep which she uses as an outpatient; titrate O2 bled into CPAP to maintain SpO2 >90�94
- Check nocturnal oximetry tonight on CPAP with no oxygen (on room air to assess if he needs O2 with sleep)
- Maintain MAP>65
- Replete electrolytes with K>4, Mg>2
- Maintain euglycemia with goal BG 140-180
- Trend H/H and transfuse if needed to keep Hb>7g/dL; keep plt>20k, unless there is concern for bleeding then keep plt>50k
- prn nebulized bronchodilators - not currently bronchospastic
- Incentive spirometer encouraged 10x per hour for at least 4 hrs a day
- DVT ppx: heparin gtt --> switching to Eliquis tonight
Patient is stable for downgrade out of ICU to telemetry. Pulmonary service will continue to follow along. I will arrange for outpatient pulmonary office follow-up for PFTs + 6MWT.
Total time spent today was 38 minutes for this encounter. Time includes reviewing laboratory test/imaging results, reviewing pertinent medical records, obtaining and reviewing medical history, performing an appropriate exam, ordering medications,
tests and procedures. Time also includes documentation of this encounter, coordinating patient care and communicating with other healthcare professionals. Total time does not include separately billed tests performed on this date of service.
Subjective Dataa
Subjective Data
Date of Service:
Date of Service: July 11, 2025
Chief Complaint: Burr Bench Hand Follow Up
Subjective:
Patient seen and evaluated today at bedside, with also at bedside. All questions were answered. Patient feels great, denies shortness of breath, chest pain, back pain or leg pain. Current heart rate 79, BP 132/79 and saturating 96% on room
air. Patient wore his home CPAP last night that was blood with 2 L/min, and was saturating approximately 96%. Remains on heparin drip
Review of Systems
General: Other (Negative unless mentioned above)
Objective Data
Data Reviewed
Vital Signs / I&O / Oxygen:
Vital Signs
Temp Pulse Resp BP Pulse Ox
97.4 F 66 17 111/75 96
07/11/25 07:26 07/11/25 07:15 07/11/25 07:15 07/11/25 07:00 07/11/25 07:15
Intake and Output
07/10/25 07/11/25 07/12/25
06:59 06:59 06:59
Intake Total 845 / 970 2039 / 2039
Output Total 500 / 500 900 / 900
Balance 345 / 470 1140 / 1140
SaO2 96
Nasal Cannula flow liters per 2
minute
Physical Exam
General: Respiratory Distress (negative), Comfortable, Chills (negative) and Sweats (negative)
HEENT: Normocephalic and Anicteric
Cardiovascular: S1-S2, Regular Rhythm and Peripheral Edema (negative)
Respiratory: Wheeze (negative), Crackles (negative), Rhonchi (negative), Non-Labored Respirations and Stridor (negative)
GI: Soft, Non Distended, Non Tender and Normal Bowel Sounds
Neurology: AO x 3 and Tremors (negative)
Skin: Warm, Dry, Cyanosis (negative) and Jaundice (negative)
Labs/Micro/Reports
Lab Data
07/11/25 03:25
07/11/25 03:25
Laboratory Results
07/10/25 07/10/25 07/11/25
11:55 17:53 06:12
APTT 76.1 H 100.2 H 28.6
[2025-07-11] MEDS: HEPARIN 25000 UNITS/250 ML IV ×2 (10:53→18:38)
--- NOTE | 2025-07-11 11:50 | W.PN.HOSP.TC ---
Today's Communication/Plan
-
Heparin drip. Increase activity
Assessment / Plan
Assessment / Plan
Physical exam:
General: Acutely ill
HEENT: Normocephalic, Atraumatic and Moist Mucous Membranes
Respiratory: Clear to Auscultation; Negative Wheezes, Rales or Rhonchi
Cardiac: Regular Rhythm and S1/S2
GI: Soft, Nontender and Nondistended
Musculoskeletal: No Clubbing, No Cyanosis and No Edema
Neuro: Awake, Alert and Oriented, no neurological deficit
Psych: Calm
A/P:
Acute pulmonary embolism, suspected submassive PE:
Improving and hemodynamically stable
Continue IV heparin drip and can change to oral oral anticoagulation either later tonight or tomorrow
Reviewed echocardiogram-no acute abnormality
Reviewed Doppler with DVT in left peroneal vein
Transfer out of ICU
Increase activity
Acute hypoxic respiratory failure:
Improved
Related to PE
Continue oxygen supplementation-currently on 5 L of oxygen with pulse ox 100%
Elevated troponin:
Elevated troponin due to non-ischemic myocardial injury due to PE
Reviewed echo
ANDI:
CPAP as needed
Hypertension:
Hold lisinopril and HCTZ due to recent hypotension but can resume in a.m.
History of prostate cancer:
History of prostatectomy back in 2022
DVT prophylaxis:
Heparin drip
CODE STATUS:
Full code
Total time spent on today's encounter was 55 minutes which included time spent in counseling the patient/family regarding diagnosis and treatment plan as listed above, goals of care, and symptom management. Case was discussed with nursing staff,
specialists, and care coordinators/case management. All labs and imaging personally reviewed by me. Remainder the time spent in detailed review of previous records, lab data, imaging, and other medical provider documentation.
Anticipated Discharge: 24 - 48 hours
Subjective/Interval History
-
Date of Service: July 11, 2025
Patient feels much better overall. No chest pain or shortness of breath.
Objective Data
-
Labs:
Laboratory Results
07/11/25 07/11/25 07/11/25
03:25 06:12 12:53
WBC 7.2
Hgb 13.0
Hct 38.2 L
Plt Count 172
APTT 28.6 Pending
Sodium 138
Potassium 4.5
Chloride 108 H
Carbon Dioxide 25
BUN 22 H
Creatinine 0.8
Glucose 84
Calcium 9.6
Vital Signs:
Vital Signs
Temp Pulse Resp BP Pulse Ox
98 F 82 15 134/76 95
07/11/25 11:11 07/11/25 10:15 07/11/25 09:45 07/11/25 08:00 07/11/25 10:15
I&O
07/10/25 07/11/25 07/12/25
06:59 06:59 06:59
Intake Total 845 / 970 2039 / 2040 60 / 60
Output Total 500 / 500 900 / 900 500 / 500
Balance 345 / 470 1140 / 1140 -440 / -440
[2025-07-11 14:33] LABS: APTT 104.2 Sec (23.4-35.0)
--- NOTE | 2025-07-11 14:37 | PTCARENOTE ---
Patient transfer via w/c Room 437-2 ; Report given to Deedee.
AAO x 3 denies pain
Normal Sinus Rhythm 60's BP via left upper arm: 130/91 Home BP medications continue to be on hold
Lungs clear through. SpO2: 96%/ RA; No SOB at rest and with ambulation. No cough
Abdomen soft non-tender . Diet tolerating
Urinates in a urinal and bathroom
Heparin at units via RT AC. Left AC capped PTT send results pending
Ambulates in a room adn hallway
--- NOTE | 2025-07-11 14:43 | PTCARENOTE ---
PTT 104.2 Per protocol Target Range. No change in rate 30/3,000 units
--- NOTE | 2025-07-11 15:30 | PTCARENOTE ---
07/11- Patient transferred and oriented to unit without issue. AAOX3; Independent with full ROM but BANKS when walking >50ft. Teley #23 where he's currently NSR at rest. Skin CDI. Lungs diminished but 96% on RA. Patient denies any current needs.
[2025-07-11] MEDS: ELIQUIS 10 MG PO (20:24)
[2025-07-12 03:07] VITALS: BP 112/72
[2025-07-12 07:00] VITALS: BP 121/76
--- NOTE | 2025-07-12 07:28 | W.PN.HOSP.TC ---
Today's Communication/Plan
-
Discharge planning
Assessment / Plan
Assessment / Plan
Physical exam:
General: No acute distress
HEENT: Normocephalic, Atraumatic and Moist Mucous Membranes
Respiratory: Clear to Auscultation; Negative Wheezes, Rales or Rhonchi
Cardiac: Regular Rhythm and S1/S2
GI: Soft, Nontender and Nondistended
Musculoskeletal: No Clubbing, No Cyanosis and No Edema
Neuro: Awake, Alert and Oriented, no neurological deficit
Psych: Calm
A/P:
Acute pulmonary embolism, suspected submassive PE:
Improved and hemodynamically stable
On Eliquis-->10 mg bid for 1 week then 5 mg bid thereafter.Minimum of 3 months.
Reviewed echocardiogram-no acute abnormality
Reviewed Doppler with DVT in left peroneal vein
Increased activity and tolerated well
Follow with PCP and Pulm as outpatient
Acute hypoxic respiratory failure:
Improved-on room air during the day but at night time please see below.
Patient is in need of oxygen at 2 liters/minute via CPAP continuously due to night pulse oximetry of <89% at night time for >30 minutes. Oxygen will help to improve hypoxemia. Patient is mobile within the home. DuoNeb therapy has been tried and is
ineffective in treating hypoxemia related symptoms. Oxygen is needed to improve symptoms.
Discussed with county library director today and recommends oxygen 2 Lt blend into his CPAP.
Discussed with CM for arrangement of above likely today.
Elevated troponin:
Elevated troponin due to non-ischemic myocardial injury due to PE
Reviewed echo
ANDI:
CPAP as needed
Hypertension:
Held lisinopril and HCTZ due to recent hypotension but can resume today
History of prostate cancer:
History of prostatectomy back in 2022
DVT prophylaxis:
Heparin drip
CODE STATUS:
Full code
Total time spent 35 minutes
Anticipated Discharge: Today
Subjective/Interval History
-
Date of Service: July 12, 2025
no cp or sob
Objective Data
-
Labs:
Laboratory Results
07/11/25 07/12/25
20:45 06:00
WBC Pending
Hgb Pending
Hct Pending
Plt Count Pending
APTT Cancelled
Sodium Pending
Potassium Pending
Chloride Pending
Carbon Dioxide Pending
BUN Pending
Creatinine Pending
Glucose Pending
Calcium Pending
Vital Signs:
Vital Signs
Temp Pulse Resp BP Pulse Ox
98.0 F 66 18 112/72 99
07/12/25 03:07 07/12/25 03:07 07/12/25 03:07 07/12/25 03:07 07/12/25 03:07
I&O
07/11/25 07/12/25 07/13/25
06:59 06:59 06:59
Intake Total 2040 / 2040 300 / 300
Output Total 900 / 900 500 / 500
Balance 1140 / 1140 -200 / -200
[2025-07-12] MEDS: ELIQUIS 10 MG PO (08:20)
[2025-07-12 08:46] LABS: Hematocrit 39.5 % (39.0-52.0); Hemoglobin 13.4 g/dL (13.0-18.0); Mean Corp Hgb Conc. 33.9 g/dL (33.0-37.0); Mean Corpuscular Volume 87.4 fL (80.0-94.0); Platelet Count 196 10^3/uL (130-400); Red Cell Dist. Width 12.3 % (11.5-14.5)
[2025-07-12 09:09] LABS: Blood Urea Nitrogen 23 mg/dl (9-20); Calcium 9.3 mg/dl (8.4-10.2); Carbon Dioxide 28 mmol/L (22-30); Chloride 106 mmol/L (98-107); Estimated Creatinine Clearance 112 ml/min; Glucose 88 mg/dl (70-99); Potassium 4.4 mmol/L (3.5-5.1); Sodium 140 mmol/L (135-145); eGFR > 60.00
--- NOTE | 2025-07-12 10:46 | W.DCSUMMARY ---
Discharge Summary
Discharge Data
Date of Admission: 07/09/25
Date of Discharge: 07/12/25
Total time spent discharging patient (in min): 35
-
Pending Results: No
Hospital Course
Patient 60 years old male with history of prostate cancer status post prostatectomy, came into the hospital with shortness of breath and found to have PE. Pulmonary and critical care consulted. It was felt he had provoked submassive PE. Patient
initially had transient hypotension, elevated troponin, and CT raised concerns for possible right ventricular strain. He was started on heparin drip. He was contemplating to use catheter guided thrombolytics but subsequently patient stabilized.
His blood pressure medications were held. His echocardiogram came back with no acute abnormalities. Patient did well rest of the hospital stay and he was able to be switched to oral anticoagulation with Eliquis. Patient had a night pulse oximetry
that shows that he needs oxygen at home blended with the CPAP and this was arranged through catalytic case operator. Otherwise, patient hemodynamically stable and ambulating well on room air afebrile and feels symptomatically back to his baseline. He will
continue to follow-up with PCP and pulmonary as outpatient. He will be discharged in relatively stable condition today.
Discharge duration: 35 minutes
Discharge Plan
-
Patient Disposition: Home (Routine Discharge)
Discharge Diagnosis/Procedures: Acute pulmonary embolism. Acute hypoxic respiratory failure. Hypotension. History of hypertension. Non-myocardial injury elevated troponin.
Diet: Low Cholesterol
Activity: As tolerated
Blood Work: Please PCP to order CBC, BMP within 1 week
Referrals:
Eloy Flowers MD [Active, Pulmonary Medicine] - in two to four weeks
Referral Note: Full PFT on day of office visit
Félix Banda DO [Family Provider, Internal Medicine] - in less than 1 week
Additional Discharge Medication Instructions: To use oxygen blended with CPAP at nighttime.
Prescriptions:
New
Eliquis DVT-PE Treat 30D Start 5 mg (74 tabs) tablets,dose pack
See Rx Instructions .ROUTE .COMPLEX Qty: 74 0RF
Rx Instructions:
orally per package directions
Continued
acetaminophen [Tylenol] 325 mg Tablet
650 mg PO Q6HPRN PRN (Reason: headaches)
ascorbic acid (vitamin C) [Vitamin C] 500 mg Tablet
500 mg PO DAILY
cholecalciferol (vitamin D3) [Vitamin D3] 25 mcg (1,000 unit) Tablet
25 mcg PO DAILY
lisinopril-hydrochlorothiazide 10-12.5 mg Tablet
1 tab PO DAILY
Discharge Orders:
Discharge Patient (As Directed); Ordered 07/12/25
Ordered By: Devante Odell
Discharge Date and Time
Print Language: THAI
[2025-07-12 11:17] VITALS: BP 137/82
--- NOTE | 2025-07-12 11:21 | CM ---
Chart reviewed. Plan is for patient to d/c today. Discussed w/ pulmonology and hospitalist, patient will need nocturnal O2 via CPAP device. Patient currently has CPAP through [employer]. [facility] does not have weekend hours, patient agreeable
to [facility] as he had CPAP supplies through them before. Script and clinicals faxed to [facility], spoke w/ Rowan, confirmed receipt of fax. Stated patient can d/c once d/c order is completed and instructed for patient to call [facility] when he leaves to
have the mail truck driver dispatched to his home for home set up.
Hospitalist requesting pricing for Eliquis. Patient has [employer] rx plan, Eliquis is covered, for a 30 day supply will be $112, 90 day supply will be around $360. Discussed this and the above w/ patient, provided [facility]'s number to call when
leaving. Patient stated his will be transporting him home.
Plan: Home w/ nocturnal O2 through [facility]
--- NOTE | 2025-07-12 11:30 | W.PN.PUL3 ---
Today's Communication / Plan
-
Continue Eliquis
Continue CPAP with sleep; case management consult to get patient discharged home on 2 L/min bled into device
Okay to get up out of bed; can walk in hallway if tolerated
Recommend checking ambulatory pulse oximetry prior to discharge
Patient is being prepared for discharge home. No additional recommendations at this time. Pulmonary service will now sign off. Please reconsult if there are any additional questions/concerns, or if patient's respiratory status deteriorates. I
will arrange for outpatient pulmonary office follow-up for PFTs + 6MWT.
Assessment
-
60yoM nonsmoker PMH ANDI, HTN, prostate cx s/p prostatectomy 2022, knee replacement 1 yr ago presenting with SOB and tachycardia found to have bilateral subsegmental PE in ICU for acute decompensation in vitals overnight.
Impression:
#Acute submassive bilateral PE with mild RV strain seen radiographically - likely provoked from recent flight although does have history of prostate cancer s/p surgery 2.5 years ago (in remission)
#Acute hypoxic respiratory failure due to above
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
#Left lower extremity DVT involving the peroneal vein
#History of prostate cancer
#Hypertension
Plan:
- Continue with systemic anticoagulation with Eliquis s/p heparin gtt
- Recommend case specialist consult to assess affordability of Eliquis
- Recommend outpatient hematology evaluation for hypercoagulable workup and assistance to decide duration of AC
- Echo shows no evidence of RV strain and normal PASP; no need for catheter directed thrombolysis or embolectomy at this time
- Lower extremity duplex shows distal left lower extremity DVT; he has no complaints of leg pain and his left leg has good color hence no need for mechanical thrombectomy at this time
- Ok for pt to get up OOB given it has been >24 hrs with systemic AC
- Maintain SpO2 >90-94%
- Patient will need an ambulatory pulse oximetry prior to discharge
- Continue with CPAP with sleep which she uses as an outpatient; titrate O2 bled into CPAP to maintain SpO2 >90�94
- NOX study showed showed time with SpO2 <89% of 31 minutes, with renetta SpO2: 82%. Will work with CM to get him started on 2L/min with CPAP
- Maintain MAP>65
- Replete electrolytes with K>4, Mg>2
- Maintain euglycemia with goal BG 140-180
- Trend H/H and transfuse if needed to keep Hb>7g/dL; keep plt>20k, unless there is concern for bleeding then keep plt>50k
- prn nebulized bronchodilators - not currently bronchospastic
- Incentive spirometer encouraged 10x per hour for at least 4 hrs a day
- DVT ppx: Eliquis
Patient is being prepared for discharge home. I will arrange for outpatient pulmonary office follow-up for PFTs + 6MWT. No additional recommendations at this time. Pulmonary service will now sign off. Thank you for allowing us to be involved in
the care of this patient. Please reconsult if there are any additional questions/concerns, or if patient's respiratory status deteriorates.
Total time spent today was 26 minutes for this encounter. Time includes reviewing laboratory test/imaging results, reviewing pertinent medical records, obtaining and reviewing medical history, performing an appropriate exam, ordering medications,
tests and procedures. Time also includes documentation of this encounter, coordinating patient care and communicating with other healthcare professionals. Total time does not include separately billed tests performed on this date of service.
Subjective Data
-
Date of Service:
Date of Service: July 12, 2025
Chief Complaint: Pulmonary Follow Up
Subjective:
Patient seen and evaluated today at bedside. Overnight oximetry showed time with SpO2 <89% of 31 minutes, with renetta SpO2: 82%. Afebrile overnight. Saturating 97% on room air. Feels well, denies shortness of breath, chest pain, fevers or chills.
Review of Systems
General: Other (Negative unless mentioned above)
Objective Data
Data Reviewed
Vital Signs / I&O / Oxygen:
Vital Signs
Temp Pulse Resp BP Pulse Ox
97.7 F 64 18 121/76 96
07/12/25 07:00 07/12/25 07:00 07/12/25 07:00 07/12/25 07:00 07/12/25 07:00
Intake and Output
07/11/25 07/12/25 07/13/25
06:59 06:59 06:59
Intake Total 2040 / 2040 300 / 300
Output Total 900 / 900 500 / 500
Balance 1140 / 1140 -200 / -200
SaO2 96
Nasal Cannula flow liters per 2
minute
Physical Exam
General: Respiratory Distress (negative), Comfortable and Chills (negative)
HEENT: Normocephalic and Anicteric
Cardiovascular: S1-S2 and Peripheral Edema (negative)
Respiratory: Clear, Wheeze (negative), Crackles (negative), Rhonchi (negative) and Non-Labored Respirations
GI: Soft, Non Distended, Non Tender and Normal Bowel Sounds
Neurology: AO x 3 and Tremors (negative)
Skin: Warm, Dry, Cyanosis (negative) and Jaundice (negative)
Labs/Micro/Reports
Lab Data
07/12/25 08:11
07/12/25 08:11
Laboratory Results
07/11/25 07/11/25
13:57 20:45
APTT 104.2 H Cancelled
[2025-07-12 11:40] VITALS: BP 137/79; PULSE 71; O2SAT 96
== END 2025-07-12 12:59 | disposition home or self-care (01) | DRG 175 ==
LOC: 4 WEST ACU 16:36
PROVIDERS: Nurse Practitioner Family; Nurse Practitioner Primary Care; ADMITTING PHYSICIAN Internal Medicine; ATTENDING PHYSICIAN Hospitalist; CONSULT PHYSICIAN Internal Medicine Critical Care Medicine; EMERGENCY PHYSICIAN Emergency Medicine; FAMILY PHYSICIAN Internal Medicine
DX: I26.99 Other pulmonary embolism without acute cor pulmonale (principal); J96.01 Acute respiratory failure with hypoxia; I82.452 Acute embolism and thrombosis of left peroneal vein; I5A Non-ischemic myocardial injury (non-traumatic); I10 Essential (primary) hypertension; M19.90 Unspecified osteoarthritis, unspecified site; Z96.652 Presence of left artificial knee joint; I95.9 Hypotension, unspecified; G47.33 Obstructive sleep apnea (adult) (pediatric); Z79.899 Other long term (current) drug therapy; Z85.46 Personal history of malignant neoplasm of prostate; Z90.79 Acquired absence of other genital organ(s)
CPT/HCPCS: 71045; 71275; 80048; 80053; 82962; 83735; 83880; 84484; 85025; 85027; 85610; 85730; 93005; 93306; 93970; 94762; 96365; 97162; 99291; Q9967

== ENCOUNTER → 2025-08-20 07:37 | Outpatient (REF) | payer OTHER, SELFPAY | LOC: HWRAD 07:37 | PROVIDERS: ATTENDING PHYSICIAN Internal Medicine Critical Care Medicine; FAMILY PHYSICIAN Internal Medicine | DX: I26.99 Other pulmonary embolism without acute cor pulmonale (principal) | CPT/HCPCS: 71250 ==